=== PATIENT | female | born 1975 | race Hispanic/Latino ===

== ENCOUNTER 2021-01-22 00:10 | Inpatient (IN) | payer SELFPAY ==
[2021-01-22 00:14] VITALS: BMI 40.7
[2021-01-22] MEDS ORDERED: Acetaminophen 325 MG TAB PO PRN (00:32)
[2021-01-22] MEDS ORDERED: Calcium Carbonate 500 MG ChewTAB PO PRN (00:32)
[2021-01-22] MEDS ORDERED: HYDROcodone/Acetaminophen 5/325 mg Tablet PO PRN (00:32)
[2021-01-22] MEDS ORDERED: Dextrose 50% Abboject 50 ML SYRINGE SLOW IVP PRN (00:32)
[2021-01-22] MEDS ORDERED: Dextrose 5% in Water 1,000 ML IV PRN (00:32)
[2021-01-22] MEDS ORDERED: Guaifenesin DM 100-10/5 ML UDCUP PO PRN (00:32)
[2021-01-22] MEDS ORDERED: Ondansetron PF 4 MG/2 ML Vial IVP PRN (00:32)
[2021-01-22] MEDS ORDERED: Ventolin HFA Inhaler 60 PUFF INHALER INH PRN (00:37)
[2021-01-22] MEDS ORDERED: Sodium Chloride 0.9% 500 ML IV SCH (00:45)
[2021-01-22] MEDS: HumaLOG 300 UNITS/3 ML VIAL SC PRN ×4 (01:16→16:38)
[2021-01-22 06:16] LABS: #Monocytes 0.2 10x3/uL (0.0-1.1); #Neutrophils 2.8 10x3/uL (1.5-8.4); %Lymphocytes 18.1 % (18.0-47.0); %Monocytes 4.9 % (0.0-10.0); %Neutrophils 76.5 % (40.0-75.0); Mean Corpuscular HGB CONC 32.2 g/dL (32.0-36.0); Mean Corpuscular Volume 90.2 fl (81.6-98.3); Mean Platelet Volume 10.7 fl (7.4-10.4); Platelet Count 224 10x3/uL (150-450); Red Blood Cell (RBC) Count 4.48 10x6/uL (3.90-5.03); White Blood Cell (WBC) Count 3.7 10x3/uL (3.5-10.5)
[2021-01-22 06:24] LABS: Lactic Acid 0.7 mmol/L (0.5-2.2)
[2021-01-22 06:32] LABS: ALT (SGPT) 61 U/L (8-55); AST (SGOT) 43 U/L (5-34); Albumin 3.8 g/dL (3.5-5.0); Alkaline Phosphatase 60 U/L (40-110); Anion Gap 15 mmol/L (10-20); BUN (Urea Nitrogen) 9 mg/dL (7.0-18.7); Bilirubin, Total 0.4 mg/dL (0.2-1.2); CRP (Inflammatory) 13.18 mg/dL (= or < 0.5); Calc. Creatinine Clearance 197 mL/min (70-130); Calcium 8.6 mg/dL (7.8-10.44); Carbon Dioxide 22 mmol/L (22-29); Cardiac Risk 7.1 (Less than 4.5); Chloride 105 mmol/L (98-107); Cholesterol 178 mg/dl (< 200 Desired); Globulin 3.9 g/dL (2.4-3.5); Glucose 358 mg/dL (70-105); HDL Cholesterol 25 mg/dL (>60 Neg Risk); LDL Cholesterol, Calculated 131 mg/dL; Protein, Total 7.7 g/dL (6.0-8.3); Sodium 138 mmol/L (136-145); Triglycerides 109 mg/dL (Less than 150)
[2021-01-22] MEDS ORDERED: Cepastat Lozenges 1 LOZ PO PRN (07:40)
[2021-01-22] MEDS ORDERED: Zolpidem Tartrate 5 MG TAB PO PRN (07:40)
[2021-01-22] MEDS ORDERED: Bisacodyl 5 MG TAB PO PRN (07:40)
[2021-01-22] MEDS ORDERED: Sodium Chloride 0.65% Nasal 44 ML BOT EA NARE PRN (07:40)
[2021-01-22] MEDS ORDERED: Metoclopramide HCl 10 MG/2 ML VIAL IVP PRN (07:40)
[2021-01-22] MEDS ORDERED: GUAIFENESIN SF SOLN 200 MG/10 ML UDCUP PO PRN (07:40)
[2021-01-22] MEDS ORDERED: hydrALAZINE 20 MG/ML VIAL SLOW IVP PRN (07:40)
[2021-01-22] MEDS ORDERED: Loratadine 10 MG TAB PO PRN (07:40)
[2021-01-22] MEDS ORDERED: Loperamide HCl 2 MG CAP PO PRN (07:40)
[2021-01-22] MEDS ORDERED: Senokot S 8.6-50 MG TAB PO PRN (07:40)
[2021-01-22] MEDS: Aspirin 81 mg Enteric Coated Tablet PO SCH (08:40)
[2021-01-22] MEDS: Cholecalciferol 1,000 UNITS (25 MCG) TAB PO SCH (08:40)
[2021-01-22] MEDS: Enoxaparin Sodium 40 MG/0.4 ML SYRINGE SC SCH ×2 (08:41→20:30)
[2021-01-22] MEDS: Alogliptin 6.25 MG TAB PO SCH (08:41)
[2021-01-22] MEDS: Lisinopril 10 MG TAB PO SCH (08:41)
[2021-01-22] MEDS: Dexamethasone 20 MG/5 ML VIAL SLOW IVP SCH (08:41)
[2021-01-22] MEDS: Benzonatate 100 MG CAP PO SCH ×3 (08:41→20:25)
[2021-01-22] MEDS: Ascorbic Acid 500 mg Chewable Tablet PO SCH (08:41)
[2021-01-22] MEDS: Zinc Gluconate 50 MG TAB PO SCH (08:42)
[2021-01-22] MEDS ORDERED: SITAGLIPTIN PHOSPHATE 25 MG PO SCH (09:00)
[2021-01-22] MEDS ORDERED: REMDESIVIR (EUA) 200 MG in Sodium Chloride 0.9% 250 ML 210 ML IV SCH (12:00)
[2021-01-23] MEDS: HumaLOG 300 UNITS/3 ML VIAL SC PRN ×5 (00:30→22:08)
[2021-01-23] MEDS: Aspirin 81 mg Enteric Coated Tablet PO SCH (08:33)
[2021-01-23] MEDS: Lisinopril 10 MG TAB PO SCH (08:33)
[2021-01-23] MEDS: Zinc Gluconate 50 MG TAB PO SCH (08:33)
[2021-01-23] MEDS: Benzonatate 100 MG CAP PO SCH ×3 (08:33→20:06)
[2021-01-23] MEDS: Alogliptin 6.25 MG TAB PO SCH (08:33)
[2021-01-23] MEDS: Dexamethasone 20 MG/5 ML VIAL SLOW IVP SCH (08:33)
[2021-01-23] MEDS: Enoxaparin Sodium 40 MG/0.4 ML SYRINGE SC SCH ×2 (08:33→20:07)
[2021-01-23] MEDS: Cholecalciferol 1,000 UNITS (25 MCG) TAB PO SCH (08:33)
[2021-01-23] MEDS: Ascorbic Acid 500 mg Chewable Tablet PO SCH (08:34)
[2021-01-23] MEDS: REMDESIVIR (EUA) 100 MG in Sodium Chloride 0.9% 250 ML 230 ML IV SCH (12:15)
[2021-01-23] MEDS ORDERED: NPH, Human Insulin Isophane 300 UNIT/3 ML VIAL SC SCH (21:00)
[2021-01-24] MEDS: HumaLOG 300 UNITS/3 ML VIAL SC PRN ×4 (05:30→22:15)
[2021-01-24 07:16] LABS: #Monocytes 0.5 10x3/uL (0.0-1.1); #Neutrophils 3.6 10x3/uL (1.5-8.4); %Lymphocytes 21.5 % (18.0-47.0); %Monocytes 9.6 % (0.0-10.0); %Neutrophils 68.7 % (40.0-75.0); Hemoglobin 12.6 g/dL (12.0-15.5); Mean Corpuscular HGB CONC 31.7 g/dL (32.0-36.0); Mean Corpuscular Hemoglobin 29.3 pg (27.0-33.0); Mean Corpuscular Volume 92.3 fl (81.6-98.3); Mean Platelet Volume 10.8 fl (7.4-10.4); Platelet Count 291 10x3/uL (150-450); RBC Distribution Width 12.8 % (11.5-14.5); White Blood Cell (WBC) Count 5.3 10x3/uL (3.5-10.5)
[2021-01-24 07:37] LABS: ALT (SGPT) 42 U/L (8-55); AST (SGOT) 19 U/L (5-34); Albumin 3.5 g/dL (3.5-5.0); Alkaline Phosphatase 60 U/L (40-110); Anion Gap 14 mmol/L (10-20); BUN (Urea Nitrogen) 15 mg/dL (7.0-18.7); Bilirubin, Total 0.4 mg/dL (0.2-1.2); CRP (Inflammatory) 4.55 mg/dL (= or < 0.5); Calc. Creatinine Clearance 183 mL/min (70-130); Calcium 8.8 mg/dL (7.8-10.44); Carbon Dioxide 23 mmol/L (22-29); Chloride 105 mmol/L (98-107); Globulin 3.5 g/dL (2.4-3.5); Glucose 369 mg/dL (70-105); Potassium 4.1 mmol/L (3.5-5.1); Sodium 138 mmol/L (136-145)
[2021-01-24] MEDS: Alogliptin 6.25 MG TAB PO SCH (07:40)
[2021-01-24] MEDS: Dexamethasone 20 MG/5 ML VIAL SLOW IVP SCH (07:40)
[2021-01-24] MEDS: Enoxaparin Sodium 40 MG/0.4 ML SYRINGE SC SCH ×2 (07:40→20:15)
[2021-01-24] MEDS: Lisinopril 10 MG TAB PO SCH (07:40)
[2021-01-24] MEDS: Ascorbic Acid 500 mg Chewable Tablet PO SCH (07:40)
[2021-01-24] MEDS: Cholecalciferol 1,000 UNITS (25 MCG) TAB PO SCH (07:41)
[2021-01-24] MEDS: Aspirin 81 mg Enteric Coated Tablet PO SCH (07:41)
[2021-01-24] MEDS: Benzonatate 100 MG CAP PO SCH ×3 (07:42→20:05)
[2021-01-24] MEDS: NPH, Human Insulin Isophane 300 UNIT/3 ML VIAL SC SCH ×2 (11:29→22:08)
[2021-01-24] MEDS: Colchicine 0.6 MG TAB PO SCH ×2 (11:29→20:05)
[2021-01-24] MEDS: Zinc Gluconate 50 MG TAB PO SCH (11:29)
[2021-01-24] MEDS: REMDESIVIR (EUA) 100 MG in Sodium Chloride 0.9% 250 ML 230 ML IV SCH (11:42)
[2021-01-24 17:49] LABS: Hemoglobin A1c 11.2 % (4.0-6.0)
[2021-01-25] MEDS: HumaLOG 300 UNITS/3 ML VIAL SC PRN ×3 (05:30→17:53)
[2021-01-25 07:06] LABS: #Monocytes 0.4 10x3/uL (0.0-1.1); #Neutrophils 3.8 10x3/uL (1.5-8.4); %Basophils 0.2 % (0.0-2.0); %Monocytes 7.8 % (0.0-10.0); %Neutrophils 67.6 % (40.0-75.0); Hemoglobin 13.2 g/dL (12.0-15.5); Mean Corpuscular HGB CONC 32.2 g/dL (32.0-36.0); Mean Corpuscular Hemoglobin 29.2 pg (27.0-33.0); Mean Corpuscular Volume 90.7 fl (81.6-98.3); Mean Platelet Volume 10.4 fl (7.4-10.4); Platelet Count 324 10x3/uL (150-450); RBC Distribution Width 12.6 % (11.5-14.5); Red Blood Cell (RBC) Count 4.52 10x6/uL (3.90-5.03); White Blood Cell (WBC) Count 5.6 10x3/uL (3.5-10.5)
[2021-01-25 07:28] LABS: ALT (SGPT) 46 U/L (8-55); AST (SGOT) 29 U/L (5-34); Albumin 3.4 g/dL (3.5-5.0); Alkaline Phosphatase 55 U/L (40-110); Anion Gap 13 mmol/L (10-20); BUN (Urea Nitrogen) 17 mg/dL (7.0-18.7); Bilirubin, Total 0.4 mg/dL (0.2-1.2); CRP (Inflammatory) 2.49 mg/dL (= or < 0.5); Calc. Creatinine Clearance 199 mL/min (70-130); Calcium 8.7 mg/dL (7.8-10.44); Carbon Dioxide 25 mmol/L (22-29); Chloride 105 mmol/L (98-107); Globulin 3.4 g/dL (2.4-3.5); Glucose 336 mg/dL (70-105); Protein, Total 6.8 g/dL (6.0-8.3); Sodium 139 mmol/L (136-145)
[2021-01-25] MEDS: Colchicine 0.6 MG TAB PO SCH ×2 (08:10→19:59)
[2021-01-25] MEDS: Benzonatate 100 MG CAP PO SCH ×3 (08:10→20:00)
[2021-01-25] MEDS: Cholecalciferol 1,000 UNITS (25 MCG) TAB PO SCH (08:10)
[2021-01-25] MEDS: NPH, Human Insulin Isophane 300 UNIT/3 ML VIAL SC SCH ×2 (08:10→20:27)
[2021-01-25] MEDS: Ascorbic Acid 500 mg Chewable Tablet PO SCH (08:10)
[2021-01-25] MEDS: Enoxaparin Sodium 40 MG/0.4 ML SYRINGE SC SCH ×2 (08:10→20:00)
[2021-01-25] MEDS: Aspirin 81 mg Enteric Coated Tablet PO SCH (08:10)
[2021-01-25] MEDS: Alogliptin 6.25 MG TAB PO SCH (08:10)
[2021-01-25] MEDS: Dexamethasone 20 MG/5 ML VIAL SLOW IVP SCH (08:10)
[2021-01-25] MEDS: Zinc Gluconate 50 MG TAB PO SCH (08:11)
[2021-01-25] MEDS: Lisinopril 2.5 MG TAB PO SCH (08:43)
[2021-01-25] MEDS: REMDESIVIR (EUA) 100 MG in Sodium Chloride 0.9% 250 ML 230 ML IV SCH (12:08)
[2021-01-25] MEDS: Atorvastatin Calcium 20 MG TAB PO SCH (20:00)
[2021-01-26] MEDS: HumaLOG 300 UNITS/3 ML VIAL SC PRN ×3 (06:31→17:43)
[2021-01-26 07:44] LABS: #Monocytes 0.5 10x3/uL (0.0-1.1); #Neutrophils 3.7 10x3/uL (1.5-8.4); %Eosinophils 0.2 % (0.0-6.0); %Lymphocytes 25.7 % (18.0-47.0); %Monocytes 8.9 % (0.0-10.0); %Neutrophils 64.8 % (40.0-75.0); Hemoglobin 13.2 g/dL (12.0-15.5); Mean Corpuscular HGB CONC 32.4 g/dL (32.0-36.0); Mean Corpuscular Hemoglobin 29.2 pg (27.0-33.0); Mean Corpuscular Volume 90.3 fl (81.6-98.3); Mean Platelet Volume 10.4 fl (7.4-10.4); Platelet Count 327 10x3/uL (150-450); RBC Distribution Width 12.3 % (11.5-14.5); Red Blood Cell (RBC) Count 4.52 10x6/uL (3.90-5.03); White Blood Cell (WBC) Count 5.7 10x3/uL (3.5-10.5)
[2021-01-26] MEDS: Alogliptin 6.25 MG TAB PO SCH (08:09)
[2021-01-26] MEDS: Cholecalciferol 1,000 UNITS (25 MCG) TAB PO SCH (08:10)
[2021-01-26] MEDS: Colchicine 0.6 MG TAB PO SCH ×2 (08:10→20:29)
[2021-01-26] MEDS: Ascorbic Acid 500 mg Chewable Tablet PO SCH (08:10)
[2021-01-26] MEDS: Benzonatate 100 MG CAP PO SCH ×3 (08:10→20:29)
[2021-01-26] MEDS: Aspirin 81 mg Enteric Coated Tablet PO SCH (08:10)
[2021-01-26] MEDS: Lisinopril 2.5 MG TAB PO SCH (08:10)
[2021-01-26] MEDS: Dexamethasone 20 MG/5 ML VIAL SLOW IVP SCH (08:10)
[2021-01-26] MEDS: Enoxaparin Sodium 40 MG/0.4 ML SYRINGE SC SCH ×2 (08:10→20:29)
[2021-01-26] MEDS: Zinc Gluconate 50 MG TAB PO SCH (08:11)
[2021-01-26] MEDS: NPH, Human Insulin Isophane 300 UNIT/3 ML VIAL SC SCH ×2 (08:11→20:51)
[2021-01-26 08:54] LABS: ALT (SGPT) 48 U/L (8-55); AST (SGOT) 28 U/L (5-34); Albumin 3.3 g/dL (3.5-5.0); Alkaline Phosphatase 52 U/L (40-110); Anion Gap 11 mmol/L (10-20); BUN (Urea Nitrogen) 18 mg/dL (7.0-18.7); CRP (Inflammatory) 1.48 mg/dL (= or < 0.5); Calc. Creatinine Clearance 188 mL/min (70-130); Calcium 8.4 mg/dL (7.8-10.44); Carbon Dioxide 25 mmol/L (22-29); Chloride 104 mmol/L (98-107); Globulin 3.1 g/dL (2.4-3.5); Glucose 319 mg/dL (70-105); Potassium 3.8 mmol/L (3.5-5.1); Protein, Total 6.4 g/dL (6.0-8.3); Sodium 136 mmol/L (136-145)
[2021-01-26 09:04] LABS: Bilirubin, Total 0.4 mg/dL (0.2-1.2)
[2021-01-26] MEDS: REMDESIVIR (EUA) 100 MG in Sodium Chloride 0.9% 250 ML 230 ML IV SCH (12:35)
[2021-01-26] MEDS ORDERED: NPH, Human Insulin Isophane 300 UNIT/3 ML VIAL SC SCH (13:45)
[2021-01-26] MEDS: Atorvastatin Calcium 20 MG TAB PO SCH (20:29)
[2021-01-27] MEDS: HumaLOG 300 UNITS/3 ML VIAL SC PRN ×4 (00:03→17:33)
[2021-01-27 04:48] LABS: #Monocytes 0.7 10x3/uL (0.0-1.1); #Neutrophils 4.3 10x3/uL (1.5-8.4); %Basophils 0.1 % (0.0-2.0); %Eosinophils 0.3 % (0.0-6.0); %Monocytes 10.2 % (0.0-10.0); %Neutrophils 64.8 % (40.0-75.0); Hemoglobin 13.8 g/dL (12.0-15.5); Mean Corpuscular HGB CONC 32.6 g/dL (32.0-36.0); Mean Corpuscular Hemoglobin 29.2 pg (27.0-33.0); Mean Corpuscular Volume 89.6 fl (81.6-98.3); Mean Platelet Volume 11.4 fl (7.4-10.4); Platelet Count 359 10x3/uL (150-450); RBC Distribution Width 12.1 % (11.5-14.5); Red Blood Cell (RBC) Count 4.72 10x6/uL (3.90-5.03); White Blood Cell (WBC) Count 6.7 10x3/uL (3.5-10.5)
[2021-01-27 04:49] LABS: AST (SGOT) 20 U/L (5-34); Albumin 3.4 g/dL (3.5-5.0); Alkaline Phosphatase 56 U/L (40-110); Anion Gap 13 mmol/L (10-20); BUN (Urea Nitrogen) 19 mg/dL (7.0-18.7); Bilirubin, Total 0.3 mg/dL (0.2-1.2); CRP (Inflammatory) 0.96 mg/dL (= or < 0.5); Calc. Creatinine Clearance 188 mL/min (70-130); Calcium 8.8 mg/dL (7.8-10.44); Carbon Dioxide 24 mmol/L (22-29); Chloride 102 mmol/L (98-107); Glucose 314 mg/dL (70-105); Potassium 3.6 mmol/L (3.5-5.1); Protein, Total 6.4 g/dL (6.0-8.3); Sodium 135 mmol/L (136-145)
[2021-01-27 05:02] LABS: ALT (SGPT) 47 U/L (8-55)
[2021-01-27] MEDS: Benzonatate 100 MG CAP PO SCH ×3 (08:49→20:38)
[2021-01-27] MEDS: Cholecalciferol 1,000 UNITS (25 MCG) TAB PO SCH (08:49)
[2021-01-27] MEDS: Dexamethasone 4 MG TAB PO SCH (08:49)
[2021-01-27] MEDS: Aspirin 81 mg Enteric Coated Tablet PO SCH (08:49)
[2021-01-27] MEDS: Ascorbic Acid 500 mg Chewable Tablet PO SCH (08:49)
[2021-01-27] MEDS: Alogliptin 6.25 MG TAB PO SCH (08:49)
[2021-01-27] MEDS: Enoxaparin Sodium 40 MG/0.4 ML SYRINGE SC SCH ×2 (08:50→20:38)
[2021-01-27] MEDS: NPH, Human Insulin Isophane 300 UNIT/3 ML VIAL SC SCH ×2 (08:50→20:39)
[2021-01-27] MEDS: Colchicine 0.6 MG TAB PO SCH ×2 (08:50→20:38)
[2021-01-27] MEDS: Zinc Gluconate 50 MG TAB PO SCH (08:50)
[2021-01-27] MEDS: Atorvastatin Calcium 20 MG TAB PO SCH (20:38)
[2021-01-28] MEDS: NPH, Human Insulin Isophane 300 UNIT/3 ML VIAL SC SCH ×2 (01:04→08:49)
[2021-01-28] MEDS: HumaLOG 300 UNITS/3 ML VIAL SC PRN ×3 (05:34→16:18)
[2021-01-28 06:13] LABS: #Monocytes 0.5 10x3/uL (0.0-1.1); #Neutrophils 5.3 10x3/uL (1.5-8.4); %Basophils 0.1 % (0.0-2.0); %Eosinophils 0.3 % (0.0-6.0); %Lymphocytes 19.5 % (18.0-47.0); %Monocytes 6.9 % (0.0-10.0); %Neutrophils 72.4 % (40.0-75.0); Mean Corpuscular HGB CONC 33.3 g/dL (32.0-36.0); Mean Corpuscular Hemoglobin 29.6 pg (27.0-33.0); Mean Platelet Volume 10.5 fl (7.4-10.4); Platelet Count 409 10x3/uL (150-450); RBC Distribution Width 12.2 % (11.5-14.5); Red Blood Cell (RBC) Count 4.73 10x6/uL (3.90-5.03); White Blood Cell (WBC) Count 7.3 10x3/uL (3.5-10.5)
[2021-01-28 06:31] LABS: ALT (SGPT) 57 U/L (8-55); AST (SGOT) 22 U/L (5-34); Albumin 3.5 g/dL (3.5-5.0); Alkaline Phosphatase 61 U/L (40-110); Anion Gap 13 mmol/L (10-20); BUN (Urea Nitrogen) 19 mg/dL (7.0-18.7); Bilirubin, Total 0.3 mg/dL (0.2-1.2); CRP (Inflammatory) 0.58 mg/dL (= or < 0.5); Calc. Creatinine Clearance 194 mL/min (70-130); Calcium 8.9 mg/dL (7.8-10.44); Carbon Dioxide 26 mmol/L (22-29); Chloride 101 mmol/L (98-107); Globulin 3.2 g/dL (2.4-3.5); Glucose 349 mg/dL (70-105); Protein, Total 6.7 g/dL (6.0-8.3); Sodium 136 mmol/L (136-145)
[2021-01-28] MEDS: Aspirin 81 mg Enteric Coated Tablet PO SCH (08:48)
[2021-01-28] MEDS: Ascorbic Acid 500 mg Chewable Tablet PO SCH (08:48)
[2021-01-28] MEDS: Cholecalciferol 1,000 UNITS (25 MCG) TAB PO SCH (08:48)
[2021-01-28] MEDS: Alogliptin 6.25 MG TAB PO SCH (08:48)
[2021-01-28] MEDS: Colchicine 0.6 MG TAB PO SCH (08:48)
[2021-01-28] MEDS: Dexamethasone 4 MG TAB PO SCH (08:48)
[2021-01-28] MEDS: Benzonatate 100 MG CAP PO SCH ×2 (08:48→15:37)
[2021-01-28] MEDS: Enoxaparin Sodium 40 MG/0.4 ML SYRINGE SC SCH (08:49)
[2021-01-28] MEDS: Zinc Gluconate 50 MG TAB PO SCH (08:49)
[2021-01-28 16:17] VITALS: BP 122/79; TEMP 98.3
== END 2021-01-28 16:25 | disposition home or self-care (01) | DRG 177 ==
LOC: CSHTELE 00:10
PROVIDERS: ADMIT Internal Medicine; ATTEND Family Medicine
PROC: XW033E5 Introduction of Remdesivir Anti-infective into Peripheral Vein, Percutaneous Approach, New Technology Group 5 (ICD-10-PCS; principal; 2021-01-22)
PROC: 8E0ZXY6 Isolation (ICD-10-PCS; 2021-01-22)
DX: U07.1 COVID-19 (principal); J12.82 Pneumonia due to coronavirus disease 2019; J96.01 Acute respiratory failure with hypoxia; Z68.41 Body mass index [BMI] 40.0-44.9, adult; E87.2 Acidosis; K21.9 Gastro-esophageal reflux disease without esophagitis; R74.01 Elevation of levels of liver transaminase levels; E11.65 Type 2 diabetes mellitus with hyperglycemia; E66.01 Morbid (severe) obesity due to excess calories; I10 Essential (primary) hypertension; R00.1 Bradycardia, unspecified; Z79.4 Long term (current) use of insulin
CPT/HCPCS: 36415; 36416; 71045; 80053; 80061; 82728; 83036; 83605; 84439; 84443; 84481; 85025; 85379; 86140; 93005; 93010; 93306; 94760; J1100; J1650; J1815; J7030; J7050; J8540